=== PATIENT | male | born 1990 | race Two or more races ===

== ENCOUNTER 2024-09-09 19:44 | Emergency (ER) | payer BC, SELFPAY ==
[2024-09-09 19:47] VITALS: BP 143/97; PULSE 87; RESP 18; TEMP 36.9; O2SAT 98; BMI 35.9
--- NOTE | 2024-09-09 20:30 | XR_ITS ---
Examination: Fingers, right hand fourth digit 3 views Technique: AP, oblique, lateral views right hand fourth digit 3 views. Exam date and time: 09/09/2024 2033 hours INDICATIONS: Injured hand today with fourth digit pain. FINDINGS: Acute fracture midportion distal phalanx fourth digit, without major displacement No foreign body IMPRESSION: Acute fracture distal phalanx fourth digit
--- NOTE | 2024-09-09 20:30 | PD.EDHAND ---
Upper Extremity Injury RME/HPI General Chief Complaint: Hand/Wrist Problems Stated Complaint: R 4TH FINGER TIP INJURY Time Seen by Provider: 09/09/24 20:23 Arrival date/time: 09/09/24 19:44 34M with no significant PMH presents to ED with R ring fingertip pain after sport injury. Limitations: no limitations Related Data Previous Rx's ?Medication ?Instructions ?Recorded ibuprofen 800 mg tablet 800 mg PO Q8H PRN pain #30 tabs 03/25/22 Allergies Allergy/AdvReac Type Severity Reaction Status Date / Time No Known Allergies Allergy Verified 09/09/24 19:51 Review of Systems Review of Systems Systems Reviewed: All systems reviewed, normal except as documented Constitutional Constitutional: Reports system reviewed and no additional complaints, except as documented, Denies fever(s) and Denies headache(s) ENT Ears, Nose, Mouth, and Throat: Denies disequilibrium and Denies headache(s) Cardiovascular Cardiovascular: Reports system reviewed and no additional complaints, except as documented, Denies chest pain and Denies dyspnea Respiratory Respiratory: Reports system reviewed and no additional complaints, except as documented, Denies cough and Denies dyspnea Gastrointestinal Gastrointestinal: Reports system reviewed and no additional complaints, except as documented, Denies abdominal pain, Denies nausea and Denies vomiting Musculoskeletal Musculoskeletal: Reports as per HPI and Reports arthralgias Neurologic Neurologic: Reports system reviewed and no additional complaints, except as documented, Denies confusion, Denies disequilibrium and Denies headache(s) Psychiatric Psychiatric: Denies confusion Past Medical History Past Medical History CARDIAC: Positive Hypertension Social History SMOKING STATUS: Never smoker SUBSTANCE USE: marijuana (used once 6 years ago) ED Exam General Limitations: Present no limitations General appearance: Present alert and in no apparent distress Head Head exam: Present atraumatic Eye Eye exam: Present normal appearance, PERRL and EOMI ENT ENT exam: Present normal exam, normal oropharynx and mucous membranes moist Neck Neck exam: Present normal inspection, full ROM and trachea midline Chest Chest inspection: Present normal inspection and symmetric chest wall rise Respiratory Respiratory exam: Present normal lung sounds bilaterally Cardiovascular Cardiovascular exam: Present regular rate, normal rhythm and normal heart sounds Abdominal Exam Abdominal exam: Present soft and normal bowel sounds Extremities Exam Extremities exam: Present full ROM Expanded Upper Extremity Exam Hand exam: Present full ROM (R ring fingertip), tenderness, swelling and ecchymosis Back Exam Back exam: Present normal inspection and full ROM Neurological Exam Neurological exam: Present alert, oriented X3 and CN II-XII intact Psychiatric Psychiatric exam: Present normal affect and normal mood Skin Skin exam: Present warm, dry, intact and normal color Course Quality Measures none Orders Category Date Time Status XR finger RT min 2V Stat Exams 09/09/24 20:30 Completed Vital Signs Vital signs: Vital Signs Temperature 98.4 F 09/09/24 19:47 Pulse Rate 87 09/09/24 19:47 Respiratory Rate 18 09/09/24 19:47 Blood Pressure 143/97 H 09/09/24 19:47 Pulse Oximetry (%) 98 09/09/24 19:47 Oxygen Delivery Method Room Air 09/09/24 19:47 O2 at 98% on RA and WNLs Extremity Injury MDM Narrative MDM Narrative:: 34M with no significant PMH presents to ED with R ring fingertip pain after sport injury. Physical exam reveals R ring finger tip bruising, swelling, and tenderness on the palmar side. ROM intact. Patient is afeberile, calm, and alert. XR reveals distal finger fx. Given finn tape and preparole counseling aide. Patient data External records reviewed:: [facility] previous records Clinical information provided by:: patient Social determinants that could affect healthcare access:: none Patient has the following chronic illnesses:: none How is presenting disease/condition affected by chronic disease/condition?: no chronic disease Evaluation data The following diagnostics were reviewed and interpreted by me:: radiology exam(s) Lab and/or radiology exams considered but not ordered:: ordered Interpretation Summary: above Medications / Prescriptions Medications or Prescriptions considered but not ordered:: not ordered Medication administrations:: n/a Consultations Consultation(s) initiated? (list below): No Diagnosis Upper Extremity Injury Differential Diagnosis: sprain and strain of wrist, fracture of wrist, finger sprain, dislocation of finger, Colles' fracture, fracture of hand and other (finger fx) Most likely diagnosis given after review of the tests above:: finger fx Admission Indicated Admission indicated?: not indicated Admission Request Was there a request for admission?: No Disposition Plan Disposition Plan: Discharge Discharge Attestation Discharge Attestation: The patient and all family members were given an opportunity to ask questions and understood the discharge instructions. Discharge instructions specifically effects, indications for sooner follow up or return to the emergency department, and the expected course of current diagnosis. Patient condition: Stable Discharge Plan Plan Patient Disposition: HOME (Self Care) Discharge Disposition comment: Stable Prescriptions/Referrals Prescriptions/Med Rec: No Action ibuprofen 800 mg tablet 800 mg PO Q8H PRN (Reason: pain) Qty: 30 0RF Referrals: Fred (PCP),MD Nba [Primary Care Provider] - In 1 week Problem List Clinical Impression: Finger fracture Patient/Caregiver Discharge Instructions Education Materials: ED Fracture, Finger, Closed Additional Instructions: Please follow-up with PCP within 24-48 hours and return immediately if symptoms worsen. If problem persists, recommend outpatient PT and/or MRI follow-up. In the meantime, rest, use ice/heat, and/or compression. Print Language: Yoruba Stand Alone Forms: Patient Portal Info Letter MINDI/KELL Supervising Physician MINDI/KELL Supervising Physician: Dr. Poe
[2024-09-09 21:44] VITALS: PULSE 66; RESP 18; TEMP 37.1; O2SAT 97
== END 2024-09-09 21:43 | disposition home or self-care (01) ==
PROVIDERS: Emergency Provider Emergency Medicine; PCP Family Medicine
DX: S62.664A Nondisplaced fracture of distal phalanx of right ring finger, initial encounter for closed fracture (principal); X58.XXXA Exposure to other specified factors, initial encounter; Y93.79 Activity, other specified sports and athletics
CPT/HCPCS: 73140; 99283

== ENCOUNTER → 2024-09-27 | Outpatient (CLI) | payer BC, SELFPAY ==
--- NOTE | 2024-09-27 10:56 | XR_ITS ---
Examination: Fingers, right hand fourth digit 3 views Technique: AP oblique lateral right fourth digit 3 views Date and time: September 27, 2024 1104 hours Comparison September 09, 2024 INDICATIONS: Fracture distal phalanx fourth digit September 09, 2024 FINDINGS: Mild additional offset at the main fracture site distal phalanx fourth digit, 1.6 mm separation of the main fracture fragments No significant bony callus formation IMPRESSION: Interval mild additional offset at the main fracture site distal phalanx fourth digit
== END | disposition home or self-care (01) ==
PROVIDERS: PCP Family Medicine; Referring Provider Family Medicine; Visit Provider Family Medicine
DX: S62.634A Displaced fracture of distal phalanx of right ring finger, initial encounter for closed fracture (principal); X58.XXXA Exposure to other specified factors, initial encounter
CPT/HCPCS: 73140

== ENCOUNTER 2024-09-30 16:55 | Emergency (ER) | payer BC, SELFPAY ==
[2024-09-30 17:02] VITALS: BP 131/90; PULSE 80; RESP 18; TEMP 37; O2SAT 99; BMI 35.9
--- NOTE | 2024-09-30 17:11 | XR_ITS ---
Examination: Abdomen sonogram, Limited Date and time of exam: September 30, 2024 1715 hours INDICATIONS: Abdominal pain beginning 2 days ago Technique: Real-time vergara scale transabdominal sonographic images of the upper abdomen obtained. Findings: Contracted gallbladder No gallstones Gallbladder wall 0.3 cm Common bile duct 0.3 cm Pancreas 2.9 cm Liver 19.0 cm fatty infiltration no focal liver lesions Normal hepatopedal portal venous O Patent IVC Mass anterior to the aorta which may represent a lymph node mass 5.0 x 2.6 x 4.9 cm IMPRESSION: Negative for cholelithiasis Moderate hepatomegaly Recommend CT scan abdomen and pelvis post intravenous contrast follow-up to exclude soft tissue mass anterior to the aorta
--- NOTE | 2024-09-30 17:11 | EDRME_ITS ---
Rapid Medical Screening Exam [facility] Arrival date/time: 09/30/24 16:55 CC: Epigastric right upper quadrant abdominal pain HPI ongoing for the past 2 days denies any nausea and vomiting no prior history of similar events. No other complaints. Chief Complaint: Abdominal Pain Time Seen by Provider: 09/30/24 17:09 Vital signs: Vital Signs Temperature 98.6 F 09/30/24 17:02 Pulse Rate 80 09/30/24 17:02 Respiratory Rate 18 09/30/24 17:02 Blood Pressure 131/90 H 09/30/24 17:02 Pulse Oximetry (%) 99 09/30/24 17:02 Oxygen Delivery Method Room Air 09/30/24 17:02
[2024-09-30 17:22] LABS: Collection Type, Urine Clean Catch; Squamous Epithelial Cell,Urine 0 /hpf (0-5)
[2024-09-30 17:30] LABS: Bilirubin,Urine Negative (Negative); Blood,Urine Negative (Negative); Clarity,Urine Clear (Clear/Hazy); Color,Urine Lt-Yellow (Lt Yel-Yel); Glucose, Urine Negative (Negative); Ketones,Urine Negative (Negative); Leukocyte Esterase,Urine Negative (Negative); Nitrite,Urine Negative (Negative); PH,Urine 6.5 (5.0-7.0); Protein,Urine Negative (Neg - Trace); RBC,Urine 1 /hpf (0-3); Specific Gravity,Urine 1.008 (1.001-1.035); Urobilinogen,Urine Negative mg/dL (0.0-1.0); WBC,Urine < 1 /hpf (0-5)
[2024-09-30 17:38] LABS: Amphetamine/Methamp Scrn,U Negative (Negative); Barbiturate Screen,Urine Negative (Negative); Benzodiazepines Screen,Urine Negative (Negative); Benzoylecgonine Screen, Ur Negative (Negative); Fentanyl Screen,Urine Negative (Negative); Opiate Screen,Urine Negative (Negative); THC Screen,Urine Negative (Negative)
[2024-09-30 17:52] LABS: Basophils # (Auto) 0.1 Thou/mm3 (0.0-0.2); Basophils % (Auto) 1 % (0-2.5); Eosinophils # (Auto) 0.1 Thou/mm3 (0.0-0.5); Eosinophils % (Auto) 1 % (0-10); Hematocrit 41.2 % (41.0-53.0); Hemoglobin 13.8 g/dL (13.5-16.0); Immature Granulocytes Auto 0.01 Thou/mm3 (0.00-0.00); Lymphocytes # (Auto) 6.4 Thou/mm3 (1.0-4.8); Lymphocytes % (Auto) 66 % (10-50); Mean Corpuscular HGB Conc 33.5 g/dl (31.0-37.0); Mean Corpuscular Hemoglobin 28.4 pg (25.0-35.0); Mean Corpuscular Volume 85 fL (80-100); Monocytes # (Auto) 0.5 Thou/mm3 (0.0-0.8); Monocytes % (Auto) 5 % (0-12); Neutrophils # (Auto) 2.6 Thou/mm3 (1.8-7.7); Neutrophils % (Auto) 26 % (37-80); Nucleated Red Blood Cell # 0.00 Thou/mm3 (0.00-0.00); Nucleated Red Blood Cell % 0 /100 WBC (0); Platelet Count 216 Thou/mm3 (140-440); RDW Standard Deviation 40.2 fL (35.1-43.9); Red Blood Count 4.86 Miln/mm3 (4.50-5.90); White Blood Count 9.7 Thou/mm3 (3.8-10.6)
[2024-09-30 18:01] LABS: INR 1.1 (0.9-1.3); Partial Thromboplastin Time 28.5 Seconds (22.0-36.0); Prothrombin Time 11.7 Seconds (9.0-12.2)
[2024-09-30 18:03] LABS: B-Type Natriuretic Peptide < 20 pg/mL (0-100)
[2024-09-30 18:05] LABS: Alanine Aminotransferase 248 U/L (10-49); Albumin, Serum 4.0 gm/dL (3.5-5.0); Albumin/Globulin Ratio 1.5 (1.2-2.2); Alkaline Phosphatase 103 U/L (46-116); Anion Gap 9 (7-16); Aspartate Amino Transferase 218 U/L (0-34); BUN/Creatinine Ratio 7 Ratio (12-20); Bilirubin,Total 0.4 mg/dL (0.3-1.2); Blood Urea Nitrogen 8 mg/dL (9-23); Calcium 8.8 mg/dL (8.3-10.6); Calcium (Corrected) 8.8 mg/dL (8.5-10.1); Carbon Dioxide 28.3 mMol/L (20.0-31.0); Chloride 102 mMol/L (98-107); Creatinine (Component) 1.1 mg/dL (0.6-1.3); Estimated Creatinine Clearance 127.9 mL/min (>60); Globulin 2.7 gm/dL (2.3-3.5); Glucose 103 mg/dL (74-106); Lipase 40 U/L (12-53); Magnesium 1.6 mg/dL (1.6-2.6); Osmolality,Calculated 275 (275-295); Potassium 4.6 mMol/L (3.4-5.1); Sodium 139 mMol/L (136-145); Total Protein 6.7 gm/dL (5.7-8.2); eGFR > 60 See Note
--- NOTE | 2024-09-30 18:52 | PD.EDABDPN ---
ED Abdominal Pain RME/HPI General Chief Complaint: Abdominal Pain Stated complaint: Right upper quadrant abdominal pain Time seen by provider: 09/30/24 17:09 Arrival date/time: 09/30/24 16:55 RME / HPI RME / HPI narrative: This section includes all my notes and documentations, including HPI, PE, and ED course. Oscar Poe MD HPI: 34 y/o male with Hx of HTN presents with stabbing and sharp and burning pain in the right flank region, has difficulty localizing further. The pain seems to in dermatomal fashion. Uncertain about exacerbating factors or relieving factors. No fever or chills. No nausea or vomiting. No urinary symptoms. No history of abdominal surgery. No other complaints. ROS: All negative except as documented in HPI. Physical Exam: General: Alert and oriented. No acute distress when remaining still. Eyes: Conjunctivae and lids clear. ENT: No nasal congestion. Neck: Supple. Heart: RRR. Lungs: No respiratory distress. Good air movement. No rhonchi, wheezing, rales. Chest/Abdomen: Palpation of right T5-T9 dermatome area seems to reproduce his pain. Normal bowel sounds. No distension. No rebound or guarding. Back: No CVA tenderness. Skin: Warm and dry. Neuro: Alert and oriented X 3. I reviewed all diagnostic test results: My review of the Gall Bladder US report is NAD. My review of the Chest/Abdomen/Pelvis CT report is: Soft tissue mass most consistent with lymphadenopathy anterior to the inferior vena cava, 4.7 cm in dimension. Blood tests and urine tests remarkable for AST 218 and ALT 248. At this point, diagnoses include: Chest mass, probably compressing nerve(s). Treatment here included: Lidocaine 5% Patch, IVF. No significant improvement noted. Recommended more outpatient workup. Based on my best medical judgment, made decision no further evaluation or treatment indicated at this time. Patient understands and agrees to the discharge instructions customized and printed, see below. Discharge Instructions from Dr. Poe printed for you: 1. After extensive evaluation, you have a plum sized mass in your right chest cavity. 2. This is most likely compressing a nerve causing your sharp and stabbing and burning pain in your right flank area along the nerve route. 3. See a private doctor on 10/01/2024 for recheck and further care. Ask to review all test results and official radiology reports, to make sure you receive all necessary follow-ups and monitoring, including LFT elevation. Ask to find the cause/treatment of the mass, to assess for serious condition. You will need referrals to see specialists and biopsy and more imaging studies not available here in the ER. 4. Seek immediate medical care with worsening or with any concerns. Oscar Poe MD Related Data Previous Rx's ?Medication ?Instructions ?Recorded ibuprofen 800 mg tablet 800 mg PO Q8H PRN pain #30 tabs 03/25/22 Allergies Allergy/AdvReac Type Severity Reaction Status Date / Time No Known Allergies Allergy Verified 09/30/24 17:00 Review of Systems Review of Systems Systems Reviewed: All systems reviewed, normal except as documented Past Medical History Past Medical History CARDIAC: Positive Hypertension Social History SUBSTANCE USE: marijuana (used once 6 years ago) ED Exam Narrative Physical exam: Refer to HPI Course Quality Measures none Orders Category Date Time Status CT Screening NOW Care 09/30/24 18:55 Completed Saline [Insert IV] NOW Care 09/30/24 18:[address] chest abdomen pelvis w Stat Exams 09/30/24 18:55 Completed US gall bladder Stat Exams 09/30/24 17:11 Completed Amylase Stat Lab 09/30/24 17:38 Completed B-Type Natriuretic Peptide Stat Lab 09/30/24 17:38 Completed CBC Stat Lab 09/30/24 17:38 Completed Comprehensive Metabolic Panel Stat Lab 09/30/24 17:38 Completed Drug Screen,Urine Stat Lab 09/30/24 17:17 Completed Gamma Glutamyl Transpeptidase* Stat Lab 09/30/24 17:38 Received Hepatitis Acute Panel Stat Lab 09/30/24 17:38 Completed Lipase Stat Lab 09/30/24 17:38 Completed Magnesium Stat Lab 09/30/24 17:38 Completed Partial Thromboplastin Time Stat Lab 09/30/24 17:38 Completed Prothrombin Time with INR Stat Lab 09/30/24 17:38 Completed Urinalysis Stat Lab 09/30/24 17:17 Completed Lidocaine 5% Patch Med 09/30/24 18:55 Discontinued 2 patch TOP X1 ONE Sodium Chloride 0.9% 1000 ml [Ns] 1,000 ml Med 09/30/24 18:55 Discontinued IV 999 mls/hr Vital Signs Vital signs: Vital Signs Temperature 98.6 F 09/30/24 17:02 Pulse Rate 80 09/30/24 17:02 Respiratory Rate 18 09/30/24 17:02 Blood Pressure 131/90 H 09/30/24 17:02 Pulse Oximetry (%) 99 09/30/24 17:02 Oxygen Delivery Method Room Air 09/30/24 17:02 Abdominal Pain MDM MDM Narrative MDM Narrative:: Scribe Attestation: I, Andie Rivera, am scribing for and in the presence of Dr. Poe. Provider Notation: Although this document has been carefully reviewed, there may still be some phonetic and other typographical errors.? These errors are purely grammatical due to imperfections in the software program and should not be construed in any way to? compromise the substance of the patient's medical care during this visit. 34 y/o male with Hx of HTN presents with stabbing and sharp and burning pain in the right flank region, has difficulty localizing further. The pain seems to in dermatomal fashion. Uncertain about exacerbating factors or relieving factors. No fever or chills. No nausea or vomiting. No urinary symptoms. No history of abdominal surgery. No other complaints. Patient data External records reviewed:: [facility] [place] previous records (Reviewed prior ED records from 09/09/24. Patient was seen for Finger fracture.) Clinical information provided by:: patient Social determinants that could affect healthcare access:: none Patient has the following chronic illnesses:: HTN How is presenting disease/condition affected by chronic disease/condition?: exacerbated by Evaluation data The following diagnostics were reviewed and interpreted by me:: lab results and radiology exam(s) Lab and/or radiology exams considered but not ordered:: None Interpretation Summary: I reviewed all diagnostic test results: My review of the Gall Bladder US report is NAD. My review of the Chest/Abdomen/Pelvis CT report is: Soft tissue mass most consistent with lymphadenopathy anterior to the inferior vena cava, 4.7 cm in dimension. Blood tests and urine tests remarkable for AST 218 and ALT 248. Medications / Prescriptions Medications or Prescriptions considered but not ordered:: None Medication administrations:: Medication Administration History Discontinued Medications Sodium Chloride (Ns) 1,000 mls @ 999 mls/hr IV .Q1H1M ONE Stop: 09/30/24 19:55 Last Admin: 09/30/24 19:34 Dose: 999 mls/hr Documented By: AYSHA Lidocaine (Lidocaine 5% 1 Patch) 2 patch TOP X1 ONE Stop: 09/30/24 18:56 Last Admin: 09/30/24 19:35 Dose: 2 patch Documented By: [id number] IVF, Lidocaine 5% Patch Consultations Consultation(s) initiated? (list below): No Diagnosis Differential diagnosis abdominal pain: abdominal pain, calculus of kidney, constipation, diverticulitis, gastroenteritis, pancreatitis and small bowel obstruction Most likely diagnosis given after review of the tests above:: Chest mass compressing nerve(s) Admission Indicated Admission indicated?: not indicated Explain why admission is indicated or not indicated:: With no condition needing emergent intervention, there was no indication for admission. Admission Request Was there a request for admission?: No Disposition Plan Disposition Plan: Discharge Discharge Attestation Discharge Attestation: The patient and all family members were given an opportunity to ask questions and understood the discharge instructions. Discharge instructions specifically effects, indications for sooner follow up or return to the emergency department, and the expected course of current diagnosis. Patient condition: Stable Discharge Plan Plan Patient Disposition: HOME (Self Care) Prescriptions/Referrals Prescriptions/Med Rec: No Action ibuprofen 800 mg tablet 800 mg PO Q8H PRN (Reason: pain) Qty: 30 0RF Referrals: Fred (PCP),MD Nba [Primary Care Provider] - In 1 week Problem List Clinical Impression: Chest mass Patient/Caregiver Discharge Instructions Discharge Activity: activity as tolerated Education Materials: ED Tumor, Uncertain Cause Additional Instructions: Discharge Instructions from Dr. Poe printed for you: 1. After extensive evaluation, you have a plum sized mass in your right chest cavity. 2. This is most likely compressing a nerve causing your sharp and stabbing and burning pain in your right flank area along the nerve route. 3. See a private doctor on 10/01/2024 for recheck and further care. Ask to review all test results and official radiology reports, to make sure you receive all necessary follow-ups and monitoring. Ask to find the cause/treatment of the mass, to assess for serious condition. You will need referrals to see specialists and biopsy and more imaging studies not available here in the ER. 4. Seek immediate medical care with worsening or with any concerns. Print Language: Hebrew Stand Alone Forms: [employer] Award Info., Patient Portal Info Letter
--- NOTE | 2024-09-30 18:55 | XR_ITS ---
Examination: CT chest with intravenous contrast CT abdomen with intravenous contrast CT pelvis with intravenous contrast 2-D coronal and sagittal reconstructions Time of exam: October 10, 2024, 1941 hours INDICATIONS: Sharp back pain right-sided abdominal pain and flank pain beginning 2 days ago CTDI: vol (mGy) : 10.06. DLP: (mGycm): 986 Technique: Multiple axial images of the chest, abdomen and pelvis with intravenous contrast, 3.0 mm slice thickness. Images obtained post intravenous injection Isovue 370 60 cc. 2-D sagittal and coronal reconstructions. Low dose protocols were performed. One or more of the following dose reduction techniques were used; automated exposure control, adjustment of the mA and/or KV according to patient size, use of iterative reconstruction technique. Findings: No thoracic aortic aneurysm dilatation. Pulmonary artery segments are not enlarged. No paratracheal tracheobronchial or bronchopulmonary adenopathy No pneumonia, pulmonary edema or pleural disease No focal liver or splenic lesions Contracted gallbladder Upper aortic preaortic subcentimeter lymph nodes axial image 171 Soft tissue mass most consistent with large lymph node anterior to the inferior vena cava, 4.5 cm 12 mm fat-containing umbilical hernia No pericecal inflammatory change No bowel obstruction No diverticulitis No prostatomegaly Osseous structures are intact IMPRESSION: No pneumonia or pulmonary edema or pleural disease Soft tissue mass most consistent with lymphadenopathy anterior to the inferior vena cava, 4.7 cm in dimension Differential would include sarcoma, Hodgkin's disease, non-Hodgkin's lymphoma, less likely metastatic lymphadenopathy Recommend PET CT scan staging follow-up
[2024-09-30 19:22] LABS: Amylase 64 U/L (30-118)
[2024-09-30 19:29] VITALS: BP 125/88; PULSE 83; RESP 18; TEMP 36.9; O2SAT 97
[2024-09-30] MEDS: SODIUM CHLORIDE 0.9% 1000 ML 1,000 ML 999 ML IV (19:34)
[2024-09-30] MEDS: LIDOCAINE 5% 1 PATCH 2 PATCH TOP (19:35)
[2024-09-30 20:15] LABS: Hepatitis A Antibody IgM Non Reactive (Non React); Hepatitis B Core Antibody IgM Non Reactive (Non React); Hepatitis B Surface Antigen Non Reactive (Non React); Hepatitis C Antibody Non Reactive (Non React)
[2024-09-30 21:40] VITALS: BP 144/85; PULSE 80; RESP 15; TEMP 36.8; O2SAT 100
[2024-10-04 14:44] LABS: Gamma Glutamyl Transpeptidase* 59 U/L (3-90)
== END 2024-09-30 21:41 | disposition home or self-care (01) ==
PROVIDERS: Registered Nurse General Practice; Emergency Provider Emergency Medicine; PCP Family Medicine
DX: R22.2 Localized swelling, mass and lump, trunk (principal); R10.11 Right upper quadrant pain; R79.89 Other specified abnormal findings of blood chemistry
CPT/HCPCS: 36415; 71260; 74177; 76705; 80053; 80074; 80307; 81001; 82150; 82247; 82977; 83690; 83735; 83880; 85025; 85610; 85730; 99283; A4649; J3490; J7030; Q9967

== ENCOUNTER → 2024-11-02 | Outpatient (CLI) | payer BC, SELFPAY ==
--- NOTE | 2024-11-02 14:00 | XR_ITS ---
EXAMINATION: PET/CT FUSION SKULL TO THIGH EXAM DATE AND TIME: November 02, 2024, 1403 hours, comparison CT chest abdomen pelvis with contrast September 30, 2024 INDICATIONS: Soft tissue mass anterior to the inferior vena cava, 4.[address] dimension on CT abdomen September 30, 2024 CTDI:vol (mGy) 10.53 DLP: (mGycm) 1092.90 PROCEDURE: 17.3 mCi FDG was administered intravenously To allow for distribution and uptake of radiotracer, the patient was allowed to rest quietly in a shielded room. Imaging was performed on an integrated 16-slice PET/CT scanner, with scanning from the skull base to the mid thigh. Serum blood glucose at the time of the injection was measured 102 mg/dL. CT scanning was performed without oral or intravenous contrast material. FINDINGS: Head and Neck: There is no harrison hypermetabolism in the neck. The visualized portions of the brain are normal in appearance on CT. Chest: There is no harrison hypermetabolism in the chest. There are no pulmonary nodules. Abdomen and Pelvis: Non hypermetabolic soft tissue mass anterior to the inferior vena cava is again noted, 4.2 cm This is not hypermetabolic and it is possible this represents bowel Musculoskeletal: Marrow uptake is within normal range. IMPRESSION: Recommend CT scan abdomen pelvis post intravenous and oral contrast to further assess non hypermetabolic mass anterior to the inferior vena cava
== END | disposition home or self-care (01) ==
LOC: CDIM 12:20
PROVIDERS: PCP Family Medicine; Referring Provider Family Medicine; Visit Provider Family Medicine
DX: R07.9 Chest pain, unspecified (principal); R22.30 Localized swelling, mass and lump, unspecified upper limb
CPT/HCPCS: 78815; A9552